=== PATIENT | female | born 1940 | race Hispanic/Latino ===

== ENCOUNTER 2017-07-11 20:22 | Emergency (ER) | payer SELFPAY ==
[~2017-07-11] VITALS: Ht 162.6 cm; Wt 65.9 kg
[~2017-07-11 20:22] MED LIST: ACET-1890 PO; ATOR20TA PO; Aspirin PO; CETI-263 PO; GLBR5T PO; MECL-107 PO; MONT10TA23 PO; SENN-60 PO; TRAM50TA2 PO
[2017-07-11 20:29] VITALS: BP 178/91; PULSE 111; RESP 20; O2SAT 97
--- NOTE | 2017-07-11 22:04 | ED.REPORT ---
HPI-NVD Date of Service Jul 11, 2017 ED Provider: Frandy Rutledge MD The pt is a 77 y/o female with a hx of HTN, DM, VT and CVA who presents to the ED complaining of vomiting, onset 2 hours ago. Associated sx include nausea when she walks, fatigue and joint pain. She reports improvement in her sx in the ED. She states "I feel like my brain is really tired". The pt also reports mild dizziness and a headache which is similar to her sx in 2013, when she was diagnosed with CVA. She denies abdominal pain, lower extremity swelling and any other sx at this time. No one else in her family is sick. Nursing Notes Stated Complaint: VOMITING Chief Complaint: Female Abdominal Pain Nursing Notes Reviewed: Yes Allergies: Coded Allergies: codeine (Unverified Allergy, Severe, 10/07/15) Scheduled ([Aspirin]) 81 MG TAB.CHEW 324 MG PO DAILY Atorvastatin (Lipitor) 20 Mg Tablet 40 MG PO HS Cetirizine HCl (Cetirizine HCl) 10 Mg Tablet 10 MG PO HS Glyburide (Glyburide) 5 Mg Tab 5 MG PO BIDAC Montelukast (Montelukast) 10 Mg Tablet 10 MG PO HS Scheduled PRN Acetaminophen (Tylenol) 325 Mg Tablet 650 MG PO Q4H PRN PRN For Pain Meclizine HCl (Meclizine HCl) 25 Mg Tablet 25 MG PO BID PRN PRN For Dizziness Sennosides (Senokot) 8.6 Mg Tablet 17.2 MG PO BID PRN PRN For Constipation Tramadol (Tramadol) 50 Mg Tablet 50 MG PO QID PRN PRN For Pain General Time Seen by MD: 22:03 Chief Complaint Vomiting Hx Obtained From: Patient Arrived By: Walk-in Onset Occurred: 1 - 4 hours ago Symptom Duration: Since onset Location: : No pain Severity: Current: No pain currently Severity: Maximum: No pain Recent Healthcare: No recent doctor visit Past Medical History Past Medical History 1. Diabetes mellitus type 2. 2. Hypertension. 3. Seasonal allergies. 4. VT 5. CVA Past Surgical History none reported Smoking History Never Smoker Social History Other Social History: Good social support Ambulatory Status Independent Review of Systems Reports: joint pain Constitutional: Reports: Fatigue GI: Reports: Nausea (when she walks), Vomiting, Denies: Abdominal pain Neurologic: Reports: Dizziness, Headache Complete sys rev & neg: except as marked. Cardiovascular: Denies: Edema (lower extremity) Physical Exam Initial Vital Signs Vital Signs (First) Date Time Temp Pulse Resp B/P Pulse Ox O2 Delivery O2 Flow Rate FiO2 07/11/17 20:29 36.7 111 20 178/91 97 Room Air Initial VS: Reviewed, Vital signs abnormal Head / Eyes: Atraumatic ENT: Conjunctiva normal Neck: Supple, Non-tender, Full range of motion Respiratory: Breath sounds normal, Clear to auscultation, No respiratory distress Cardiovascular: Regular rate & rhythm, Heart sounds normal, Intact distal pulses Extremities: Vascular intact, Neuro intact, No swelling, No tenderness Skin: Warm, Dry, No cyanosis Neurologic: Alert, Oriented, Nonfocal General/Constitutional: Awake, Alert, Cooperative Abdomen: Atraumatic, Soft, No guarding, No rebound, No distention Tenderness/Guarding/Rebound: Positive: Tender diffuse (mildly tender) ENT: Atraumatic, Airway patent Mouth: Positive: Mucous membranes dry Interpretation & Diagnostics Lab Results Interpretation Result Diagram: 07/11/17 2338 07/11/17 2338 Test 07/11/17 23:38 07/12/17 00:28 White Blood Count 9.5th/mm3 (3.8-10.1) Red Blood Count 4.60mil/mm3 (3.90-5.20) Hemoglobin 14.2g/dL (12.0-15.6) Hematocrit 39.8% (35.0-46.0) Mean Corpuscular Volume 86.5fL (81-100) Mean Corpuscular Hemoglobin 30.9pg (27.0-35.0) Mean Corpuscular Hemoglobin Concent 35.7% (32.0-37.0) Red Cell Distribution Width 13.4% (12.3-15.4) Platelet Count 183bil/L (150-400) Neutrophils (%) (Auto) 86.5% (40-74) Lymphocytes (%) (Auto) 9.3% (14-46) Monocytes (%) (Auto) 3.8% (4-12) Eosinophils (%) (Auto) 0.1% (0-5) Basophils (%) (Auto) 0.1% (0-3) Sodium Level 132mEq/L (134-144) Potassium Level 4.0mEq/L (3.5-5.2) Chloride Level 91mEq/L (97-108) Carbon Dioxide Level 23mmol/L (18-29) Blood Urea Nitrogen 19mg/dL (8-27) Creatinine 0.63mg/dL (0.57-1.00) Estimat Glomerular Filtration Rate 131mL/min (>59) Glucose Level 357mg/dL (60-99) Calcium Level 9.8mg/dL (8.5-10.1) Magnesium Level 1.8mg/dL (1.6-2.6) Total Bilirubin 0.5mg/dL (0.0-1.2) Aspartate Amino Transf (AST/SGOT) 25U/L (0-50) Alanine Aminotransferase (ALT/SGPT) 28U/L (0-32) Alkaline Phosphatase 145U/L (25-165) Troponin T 0.010ug/L (0.0-0.011) Total Protein 8.0g/dL (6.4-8.4) Albumin 4.3g/dL (3.4-5.0) Hold Barrientos Top Tube Received (Received) Urine Color Yellow (YELLOW) Urine Appearance Clear (CLEAR,HAZY) Urine pH 7.0 (5.0-8.0) Urine Specific [place] 1.010 (1.003-1.035) Urine Protein 30mg/dL (NEG,TRACE) Urine Glucose (UA) >1000mg/dL (NEGATIVE) Urine Ketones Tracemg/dL (NEGATIVE) Urine Occult Blood Small (NEGATIVE) Urine Nitrite Negative (NEGATIVE) Urine Bilirubin Negative (NEGATIVE) Urine Urobilinogen Normalmg/dL (NORMAL) Urine Leukocyte Esterase Negative (NEGATIVE) Urine RBC 3-10/hpf (0-2) Urine WBC 0-5/hpf (0-5) Urine Epithelial Cells Few/hpf (NONE-MOD) Urine Crystals None seen (NONE SEEN) Urine Bacteria Few/hpf (NONE-FEW) Urine Hyaline Casts None/lpf (NONE) Urine Granular Casts None seen (NONE SEEN) Urine Waxy Casts None seen (NONE SEEN) Urine Red Blood Cell Casts None seen (NONE SEEN) Urine White Blood Cell Casts None seen (NONE SEEN) Urine Mucus None seen (None Seen) Urine Trichomonas None seen (NONE SEEN) Urine Yeast None (NONE SEEN) Urinalysis Comment None Urine Culture Reflexed Not indicated ECG Interpretation ECG Interpretation: Sinus tachycardia. Rate 103. Left axis deviation Abnormal R-wave progression, early transition. Time: 23:49 Interpreted by: ED physician CT Head Interpretation No acute intracranial abnormality. Signed by Dr. Lisa Faria 07/11/17 22:53 Re-Eval/Medical Decision Med Decision/Clinical Course 69-year-old female with nonspecific symptoms including some nausea vomiting and dehydration. She was hydrated. Labs were unremarkable. Her CT scan of her head was unremarkable. CVA is doubtful. She will be discharged home to follow- up with her primary doctor as needed. Source of Hx: Old records Re-Evaluation/Progress : Time of Eval: 01:58 Re-Evaluation/Progress Note: Rechecked pt. Discussed lab results, imaging results, diagnosis and plan to discharge. Pt understands and agrees with the plan. F/U instruction and RTER warning given. All questions addressed. Counseled Regarding: Diagnosis, Lab results, Need for follow-up, When/why to return to ED Discharge & Departure Impression: Primary Impression: Vomiting Vomiting type: unspecified Vomiting Intractability: non-intractable Nausea presence: with nausea Qualified Code: R11.2 - Nausea with vomiting, unspecified Additional Impressions: Dehydration Hyperglycemia Disposition: Home Discharge Condition All VS Reviewed: Yes Condition: Stable Patient Instructions: Diabetes in the Older Adult (ED) Additional Instructions: CT scan was normal. Urine labs are okay with the exception of elevated blood glucose. Drink plenty of fluids and watch your sugar intake carefully. Talk to Dr. De Anda about an additional diabetes medication. Referrals: Deshawn De Anda MD (PCP) Scribe Attestation Portions of this note were transcribed by Melvin Chairez. I,, personally performed the history,physical exam and medical decision-making;I reviewed and confirmed the accuracy of the information in the transcribed note. Signed by Rickie Bills. 07/11/17 copies to: Deshawn De Anda MD, Howard L MD Jul 11, 2017 22:04 Melvin Chairez Jul 11, 2017 22:13
[2017-07-11] MEDS ORDERED: Ondansetron 2 mg/mL 2 mL Inj IV PRN (22:15)
[2017-07-11] MEDS ORDERED: 0.9% Sodium Chloride 1,000 ML IV ONE (22:15)
[2017-07-11 23:44] LABS: BASOPHILS % (AUTO) 0.1 % (0-3); EOSINOPHILS % (AUTO) 0.1 % (0-5); MONOCYTES % (AUTO) 3.8 % (4-12); Mean Corpuscular Hemoglobin 30.9 pg (27.0-35.0); Mean Corpuscular Volume 86.5 fL (81-100); NEUTROPHILS % (AUTO) 86.5 % (40-74); Platelet Count 183 bil/L (150-400)
[2017-07-12 00:24] LABS: Magnesium 1.8 mg/dL (1.6-2.6); TROPONIN T 0.01 ug/L (0.0-0.011)
[2017-07-12 01:00] LABS: APPEARANCE,URINE CLEAR (CLEAR,HAZY); COLOR,URINE YELLOW (YELLOW)
[2017-07-12 01:01] LABS: OCCULT BLOOD,URINE SMALL (NEGATIVE); UROBILINOGEN,URINE NORMAL (NORMAL)
[2017-07-12 02:30] VITALS: BP 178/77; PULSE 106; RESP 19; O2SAT 96
--- NOTE | 2017-07-12 08:09 | DRSVH ---
PROCEDURE: CT BRAIN WITHOUT CONTRAST ([id number]) INDICATIONS: vertigo TECHNIQUE: Noncontrast 4.5 mm thick angled axial sections acquired from the foramen magnum to the vertex, with c oronal reformats. COMPARISON: [facility], MR, BRAIN W&W/O CONTRAST, 06/06/2014, 21:17. [facility], CT, BRAIN W/O CONTRAST, 06/06/2014, 15:34. FINDINGS: Image quality: Excellent. CSF spaces: Basal cisterns are patent. No extra-axial fluid collections. The ventricles are symmet darin in size and shape. Brain: No intracranial bleeds or masses. There is cerebral volume loss for age, with resultant vent ricular and sulcal prominence. There are periventricular and deep white matter chronic small vessel ischemic changes. There is intracranial internal carotid artery atherosclerosis. Skull and face: Calvarium and visualized facial bones appear intact, without suspicious lesions. Sinuses: Visualized sinuses and mastoids are clear. IMPRESSION: Mild microvascular atherosclerotic change in the deep white matter of each hemisphere, so urce of vertical is not seen. Depending on the clinical status followup by MR scanning may become ne cessary. Note: These findings are concordant with the preliminary interpretation. Dictated by: Miguelangel Kirby M.D. on 07/12/2017 at 8:06 Approved by: Miguelangel Kirby M.D. on 07/12/2017 at 8:07
== END 2017-07-12 02:32 | disposition home or self-care (01) ==
LOC: SED 20:22
DX: E86.0 Dehydration (principal); R11.2 Nausea with vomiting, unspecified; E11.65 Type 2 diabetes mellitus with hyperglycemia; I25.2 Old myocardial infarction; I10 Essential (primary) hypertension; Z86.73 Personal history of transient ischemic attack (TIA), and cerebral infarction without residual deficits; Z88.5 Allergy status to narcotic agent
CPT/HCPCS: 36415; 70450; 80053; 81000; 83735; 84484; 85025; 93005; 96361; 96374; 99284; J2405; J7030